=== PATIENT | female | born 2000 ===

== ENCOUNTER 2020-09-30 09:04 | Emergency (ER) | payer OTHER ==
[~2020-09-30] VITALS: Ht 157.5 cm; Wt 44.5 kg
[2020-09-30] MEDS ORDERED: Ketorolac 30mg Inj IM ONE (09:45)
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
[2020-09-30 09:51] VITALS: BP 125/85
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
[2020-09-30] MEDS ORDERED: IBUPROFEN600 M1 ORAL (11:12)
[2020-09-30 11:20] VITALS: BP 125/85
--- NOTE | 2020-09-30 11:20 | NUR ---
ED Nurse Note: Pt cleared by health care Provider for discharge. DC instructions/prescription was given and explained to pt and verbalized understanding of teachings. All medical deviecs such as ID band removed. Pt is AAO x4, ambulatory and left with all personal belongings.
== END 2020-09-30 11:20 | disposition home or self-care (01) ==
LOC: EMR 11:10
DX: R07.81 Pleurodynia (principal); Y04.2XXA Assault by strike against or bumped into by another person, initial encounter; Y93.89 Activity, other specified; Y92.9 Unspecified place or not applicable
CPT/HCPCS: 71250; 81025; 96372; J1885; Z7502; 99284